=== PATIENT | male | born 1975 | race Caucasian/White ===

== ENCOUNTER 2021-11-30 03:22 | Emergency (ER) | payer OTHER, SELFPAY ==
--- NOTE | ~2021-11-30 | CT_ITS ---
EXAMINATION: CT ABDOMEN AND PELVIS WITHOUT CONTRAST CLINICAL INFORMATION: Left flank pain COMPARISON: None TECHNIQUE: Multidetector volumetric imaging was performed from the superior aspect of the liver through the pubic symphysis. Sagittal and coronal reformatted images were obtained on the technologist's workstation. This CT examination was performed using dose optimization techniques as appropriate, variously including the following: *Automated exposure control *Adjustment of mA and/or kV according to patient size (this includes techniques or standardized protocols for targeted exams where dose is matched to indication/reason for exam; i.e. extremities or head) *Use of iterative reconstruction technique DLP: 1111 mGy-cm FINDINGS: LUNG BASES: The visualized lung bases are unremarkable. LIVER, GALLBLADDER, AND BILIARY TREE: The liver is normal in size and shape with decreased attenuation. No focal hepatic lesion or biliary ductal dilatation is present. The gallbladder is unremarkable with no evidence of radiopaque gallstones, gallbladder wall thickening, or obvious pericholecystic inflammatory changes. PANCREAS: Unremarkable. SPLEEN: Unremarkable. ADRENAL GLANDS: Unremarkable. KIDNEYS AND URETERS: The kidneys are normal in size, shape, and attenuation. Mild left hydroureteronephrosis. Mild left perinephric and periureteral fat stranding. There is no obstructing calculus at this time. There is a 0.2 cm calculus in the bladder lumen near the left ureterovesicular junction. Within the left kidney there are 2 lower pole calculi. The largest measures 0.5 cm and is 12 cm from the posterior axillary line. No right-sided calculi. BLADDER: Normally distended without wall thickening. Small calculus layering in the left aspect of the bladder lumen. GASTROINTESTINAL TRACT: Normal stomach. Normal caliber small bowel. No obstruction. Normal appendix. No colonic wall thickening or inflammatory change. No free air or free fluid. ABDOMINAL WALL: Fat-containing bilateral inguinal hernias. LYMPH NODES: Normal. VASCULAR: Unremarkable. PELVIC VISCERA: The prostate and seminal vesicles are unremarkable. OSSEOUS STRUCTURES: No acute or suspicious osseous abnormality. Mild degenerative changes throughout the spine. Mild degenerative changes of the hips. CT/CT abdomen pelvis wo con IMPRESSION: Mild left hydroureteronephrosis. 0.2 cm calculus in the bladder lumen is likely recently passed. Nonobstructing left lower pole renal calculi. Hepatic steatosis. Fleischner guidelines were followed.
[2021-11-30 03:33] VITALS: BP 144/90; PULSE 63; RESP 20; TEMP 36.8; O2SAT 97; BMI 38.1
--- NOTE | 2021-11-30 04:52 | ED_ITS ---
HPI - General Adult General Chief complaint: Back Pain/Injury Stated complaint: back pain Time Seen by Provider: 11/30/21 04:42 Source: patient Mode of arrival: ambulatory Limitations: no limitations History of Present Illness HPI narrative: Patient comes in the emergency room complaining of right-sided for pain. Patient states that he has been driving over 12 hours from [place]. Patient states that around 3 in the morning, he had severe shooting pain from his right flank into his penis, now resolved. Patient denies hematuria or dysuria. Patient states that he had mild back pain, states this is secondary to sitting so long in his car. Patient denies fever or chills. Patient denies urinary/fecal incontinence/retention Related Data Previous Rx's Medication Instructions Recorded ketorolac 10 mg tablet 10 mg PO BID PRN pain 5 days #7 11/30/21 tabs prednisone 10 mg tablet 10 mg PO DAILY #3 tabs 11/30/21 tamsulosin 0.4 mg capsule 0.4 mg PO BEDTIME #7 caps 11/30/21 Allergies Allergy/AdvReac Type Severity Reaction Status Date / Time No Known Allergies Allergy Verified 11/30/21 03:36 Review of Systems Review of Systems: Constitutional : No Weight loss, No Fever, No Chills, No Night Sweats, No Fatigue, No Malaise ENT/Mouth : No Hearing loss, No Ear Pain, No Nasal Congestion, No Sinus Pain, No Hoarseness, No sore throat, No Rhinorrhea, No Swallowing Difficulty Eyes: No Eye Pain, No Swelling, No Redness, No Foreign Body, No Discharge, No Vision Changes Cardiovascular : No Chest Pain, No SOB, No Dyspnea on Exertion, No Orthopnea, No Edema, No Palpitations Respiratory : No Cough, No Sputum, No Wheezing, No Smoke Exposure, No Dyspnea Gastrointestinal : No Nausea, No Vomiting, No Diarrhea, No Constipation, No abdominal Pain, No Hematochezia, No Melena Genitourinary : no irregular bleeding, No Dysuria, No Urinary Frequency, No Hematuria, No Urinary Incontinence, No Urgency, complaining of right-sided Flank Pain, No Urinary Flow Changes, No Hesitancy Musculoskeletal : No joint pain, No Myalgias, No Joint Swelling, patient complaining of lower back pain due to sitting over 12 hours Skin : No Skin Lesions, No rash Neuro : No Weakness, No Numbness, No Paresthesias, No Loss of Consciousness, No Dizziness, No Headache Psych : No Anxiety/Panic, No Depression, No SI/HI/AH/VH, No Social Issues, Heme/Lymph: No Bruising, No Bleeding,No Lymphadenopathy Endocrine : No Polyuria, No Polydipsia, No Temperature Intolerance [facility] Past Medical History Medical History (Updated 11/30/21 @ 06:19 by Ellie Masters MD) Diabetes Social History Social History Advance Directives: No Advance Directives Information Provided: Yes Physical Exam ED Vital Signs: Vital Signs - 24 hr 11/30/21 03:33 Temperature 98.3 F Pulse Rate 63 Respiratory Rate 20 Blood Pressure 144/90 H Pulse Oximetry 97 Oxygen Delivery Method Room Air BMI result Body Mass Index 38.1 Const Other: Appearance: Alert. Oriented X3. No acute distress. Eyes: Pupils equal, round and reactive to light. ENT: Pharynx normal. Neck: Normal inspection. Neck supple. No lymph nodes noted. No crepitus CVS: Normal heart rate and rhythm. Pulses normal. Normal S1 and S2 Respiratory: No respiratory distress. Breath sounds normal. No Wheezing. No rales Abdomen: Soft and nontender. No rigidity. No distention. Back: Mild bilateral lower back pain, no lumbar or thoracic spine tenderness. No CVA tenderness Skin: Skin warm and dry. Normal skin color. Normal skin turgor. Extremities: No lower extremity edema. No Lacerations. No Rash Neuro: Oriented X 3. No motor deficit. No sensory deficit. Moving all extremities. No slurred speech. CN 2 through 12 grossly intact Psych: calm, cooperative, normal affect Course Course Course Narrative: Patient has no history of kidney stones. Patient's pain likely musculoskeletal. Urinalysis and CT scan pending. I discussed the CT scan and labs with the patient, patient likely passed a kidney stone. Patient has some residual discomfort from renal colic Medical Decision Making Lab Data Result diagrams: 11/30/21 05:28 11/30/21 05:28 Labs: Lab Results 11/30/21 11/30/21 11/30/21 Range/Units 05:28 05:28 05:42 WBC 11.6 H (4.8-10.8) X10*3/uL RBC 4.57 L (4.60-5.80) X10*6/uL Hgb 15.4 (14.0-18.0) g/dl Hct 43.5 (42.0-52.0) % MCV 95.2 (80.0-98.0) fL MCH 33.7 H (27.0-33.0) pg MCHC 35.4 (31.0-36.0) g/dl RDW 12.1 (11.0-16.0) % Plt Count 215 (160-400) X10*3/uL MPV 10.0 (9.4-12.4) fL Immature Gran % (Auto) 0.2 (0.0-0.4) % Neut % (Auto) 88.7 H (45-73) % Lymph % (Auto) 7.0 L (20-40) % [place] % (Auto) 3.7 (2-11) % Eos % (Auto) 0.1 (0-4) % Baso % (Auto) 0.3 (0-2) % Lymph # (Auto) 0.8 L (1.2-4.9) X10*3/uL [place] # (Auto) 0.4 (0.1-1.2) X10*3/uL Eos # (Auto) 0.0 (0.0-0.4) X10*3/uL Baso # (Auto) 0.0 (0.0-0.2) X10*3/uL Abs Immat Gran (auto) 0.02 (0.00-0.03) X10*3/uL Absolute Neuts (auto) 10.3 H (2.0-8.3) x10*3/uL Absolute Nucleated RBC 0.000 (0.0-0.012) X10*3/uL Nucleated RBC % (auto) 0.0 (0.0-0.2) /100WBC Sodium 138 (135-145) mmol/L Potassium 4.5 (3.3-5.1) mmol/L Chloride 101 (96-108) mmol/L Carbon Dioxide 24 (22-29) mmol/L Anion Gap 18 (12-20) BUN 18 H (9-16) mg/dL Creatinine 1.70 H (0.5-1.4) mg/dL Estim Creat Clear Calc 75.7 Estimated GFR 44 Random Glucose 293 H (60-115) mg/dL Calcium 9.4 (8.4-10.2) mg/dL Urine Color YELLOW Urine Appearance CLEAR Urine pH 5.5 (5.0-8.0) Ur Specific [place] 1.025 (1.005-1.025) Urine Protein NEG (NEG-TRACE) MG/DL Urine Glucose (UA) >=1000 H (NEG) MG/DL Urine Ketones 40 (NEG) MG/DL Urine Blood NEG (NEG) Urine Nitrite NEG (NEG) Ur Leukocyte Esterase NEG (NEG) Urine RBC 0-2 (0) /HPF Urine WBC 0-2 (0-4) /HPF Ur Squamous Epith Cells 1+ /LPF Calcium Phosphate Cryst TRACE /LPF Urine Bacteria NONE /LPF Urine Mucus 1+ /LPF Imaging Data CT scan - abdomen: Radiologist's impression: FINDINGS: LUNG BASES: The visualized lung bases are unremarkable.? LIVER, GALLBLADDER, AND BILIARY TREE: The liver is normal in size and shape with decreased attenuation. No focal hepatic lesion or biliary ductal dilatation is present. The gallbladder is unremarkable with no evidence of radiopaque gallstones, gallbladder wall thickening, or obvious pericholecystic inflammatory changes.? PANCREAS: Unremarkable.? SPLEEN: Unremarkable.? ADRENAL GLANDS: Unremarkable.? KIDNEYS AND URETERS: The kidneys are normal in size, shape, and attenuation. Mild left hydroureteronephrosis. Mild left perinephric and periureteral fat stranding. There is no obstructing calculus at this time. There is a 0.2 cm calculus in the bladder lumen near the left ureterovesicular junction. Within the left kidney there are 2 lower pole calculi. The largest measures 0.5 cm and is 12 cm from the posterior axillary line. No right-sided calculi. BLADDER: Normally distended without wall thickening. Small calculus layering in the left aspect of the bladder lumen.? GASTROINTESTINAL TRACT: Normal stomach. Normal caliber small bowel. No obstruction. Normal appendix. No colonic wall thickening or inflammatory change. No free air or free fluid.? ABDOMINAL WALL: Fat-containing bilateral inguinal hernias.? LYMPH NODES: Normal. VASCULAR: Unremarkable. PELVIC VISCERA: The prostate and seminal vesicles are unremarkable.? OSSEOUS STRUCTURES: No acute or suspicious osseous abnormality. Mild degenerative changes throughout the spine. Mild degenerative changes of the hips.? CT/CT abdomen pelvis wo con IMPRESSION: Mild left hydroureteronephrosis. 0.2 cm calculus in the bladder lumen is likely recently passed. ? Nonobstructing left lower pole renal calculi. ? Hepatic steatosis.? ? Fleischner guidelines were followed. Discharge Plan Discharge Clinical Impression: Kidney stone Patient Disposition: Home, Self-Care Instructions: Kidney Stones (ED) Additional Instructions: Please follow-up with your primary care physician tomorrow. If you have any worsening or new symptoms, please return to the emergency room or call 911 Prescriptions: New ketorolac 10 mg tablet 10 mg PO BID PRN (Reason: pain) 5 Days Qty: 7 0RF tamsulosin 0.4 mg capsule 0.4 mg PO BEDTIME Qty: 7 0RF prednisone 10 mg tablet 10 mg PO DAILY Qty: 3 0RF
[2021-11-30] MEDS: Ketorolac Tromethamine 60 MG/2 ML VIAL IM (05:21)
[2021-11-30 05:33] LABS: Basophils Percent Auto 0.3 % (0-2); Eosinophils Percent Auto 0.1 % (0-4); Hematocrit 43.5 % (42.0-52.0); Hemoglobin 15.4 g/dl (14.0-18.0); Imm Gran Abs Auto 0.02 X10*3/uL (0.00-0.03); Imm Gran Pct Auto 0.2 % (0.0-0.4); Lymphocytes Absolute Auto 0.8 X10*3/uL (1.2-4.9); MANUAL DIFF FLAG NO; Mean Corpuscular HGB Conc 35.4 g/dl (31.0-36.0); Mean Corpuscular Hemoglobin 33.7 pg (27.0-33.0); Mean Corpuscular Volume 95.2 fL (80.0-98.0); Monocytes Absolute Auto 0.4 X10*3/uL (0.1-1.2); Monocytes Percent Auto 3.7 % (2-11); Neutrophils Absolute Auto 10.3 x10*3/uL (2.0-8.3); Neutrophils Percent Auto 88.7 % (45-73); Platelet Count 215 X10*3/uL (160-400); Red Blood Count 4.57 X10*6/uL (4.60-5.80); Red Cell Distribution Width 12.1 % (11.0-16.0); White Blood Count 11.6 X10*3/uL (4.8-10.8)
[2021-11-30 05:47] LABS: Appearance Urine CLEAR; Color Urine YELLOW; Glucose Urine UA >=1000 MG/DL (NEG); Leukocyte Esterase Urine NEG (NEG); Nitrite Urine NEG (NEG); PH 5.5 (5.0-8.0); Specific Gravity - Urine 1.025 (1.005-1.025); Urine Blood NEG (NEG); Urine Ketones 40 MG/DL (NEG); Urine Protein NEG (NEG-TRACE)
[2021-11-30 05:56] LABS: Calcium Phosphate Crystals Ur TRACE /LPF; Mucus Urine 1+ /LPF; RBC Urine 0-2 /HPF (0); Squamous Epithelial Cell Urine 1+ /LPF; WBC Urine 0-2 /HPF (0-4)
[2021-11-30 05:57] LABS: Anion Gap 18 (12-20); Blood Urea Nitrogen 18 mg/dL (9-16); Calcium 9.4 mg/dL (8.4-10.2); Carbon Dioxide 24 mmol/L (22-29); Chloride 101 mmol/L (96-108); Creatinine Clr Calc Pharmacy 75.7; Estimated Glomerular Filt Rate 44; Glucose Random 293 mg/dL (60-115); Potassium 4.5 mmol/L (3.3-5.1); Sodium 138 mmol/L (135-145)
[2021-11-30 06:15] VITALS: BP 120/79; PULSE 74; RESP 18; O2SAT 98
--- NOTE | 2021-11-30 06:25 | PC.NURSE ---
RN made MD Masters aware that the pt is commuting from out of town () and is currently enroute to [place]. Pt reports that he will not arrive in [place] until approx 1700 and requested that his medication be sent to a pharmacy in [facility] where he and his family will be stopping late this morning/early afternoon. Request passed on to MD Menchaca due to acute situation MD Masters was dealing with.
== END 2021-11-30 06:40 | disposition home or self-care (01) ==
PROVIDERS: Emergency Provider Emergency Medicine
DX: N20.0 Calculus of kidney (principal); N13.30 Unspecified hydronephrosis
CPT/HCPCS: 36415; 74176; 80048; 81001; 85025; 96372; 99284; J1885